=== PATIENT | male | born 1990 | race Two or more races ===

== ENCOUNTER 2019-12-04 11:05 | Emergency (ER) | payer MEDICAID, OTHER ==
[~2019-12-04] VITALS: Ht 182.9 cm; Wt 59.0 kg
[2019-12-04 16:04] VITALS: BP 140/91
== END 2019-12-04 16:48 | disposition home or self-care (01) ==
LOC: EDBD 11:05 → ER 11:05
DX: S80.12XA Contusion of left lower leg, initial encounter (principal); X58.XXXA Exposure to other specified factors, initial encounter; Y93.89 Activity, other specified; Y92.89 Other specified places as the place of occurrence of the external cause; Y99.8 Other external cause status
CPT/HCPCS: 73590